=== PATIENT | female | born 1980 | race Caucasian/White ===

== ENCOUNTER 2016-04-26 11:48 | Emergency (ER) | payer OTHER ==
[2016-04-26 14:10] LABS: HEMOGLOBIN 13.3 gm/dl (12.3-15.3); RED BLOOD COUNT 4.65 M/UL (4.00-5.10); WHITE BLOOD COUNT 6.9 K/UL (4.5-11.0)
[2016-04-26 14:37] LABS: BUN/CREATININE RATIO 17 (0-10)
== END 2016-04-26 17:51 | disposition home or self-care (01) ==
LOC: ER1 11:48
PROVIDERS: Physician Assistant
DX: J10.1 Influenza due to other identified influenza virus with other respiratory manifestations (principal); E03.9 Hypothyroidism, unspecified; Z79.899 Other long term (current) drug therapy
CPT/HCPCS: 36415; 71020; 80053; 82550; 82553; 83605; 83874; 84443; 84484; 85025; 85379; 87040; 93005; 96361; 96374; 99284; J2405; J7030

== ENCOUNTER 2016-07-05 14:06 | Emergency (ER) | payer OTHER | END 2016-07-05 16:04 | disposition home or self-care (01) | LOC: ER1 14:06 | DX: S39.012A Strain of muscle, fascia and tendon of lower back, initial encounter (principal); E11.9 Type 2 diabetes mellitus without complications; E03.9 Hypothyroidism, unspecified; M79.7 Fibromyalgia; Z79.899 Other long term (current) drug therapy; X50.0XXA Overexertion from strenuous movement or load, initial encounter; Y92.69 Other specified industrial and construction area as the place of occurrence of the external cause; Y99.0 Civilian activity done for income or pay | CPT/HCPCS: 96372; 99283; J1100; J1885 ==

== ENCOUNTER 2016-08-02 12:52 | Emergency (ER) | payer OTHER | END 2016-08-02 14:00 | disposition home or self-care (01) | LOC: ER1 12:52 | DX: J01.90 Acute sinusitis, unspecified (principal); Z90.49 Acquired absence of other specified parts of digestive tract | CPT/HCPCS: 99283 ==

== ENCOUNTER 2020-03-19 12:30 | Emergency (ER) | payer OTHER ==
[~2020-03-19 12:30] MED LIST: IBUPROFEN600 MG PO; KEFLEX CAP 500500 MG PO; NAPROSYN500 MG PO; OMNICEF 300 MG300 MG PO; ONDANSETRON ODT4 MG SL; PYRIDIUM200 MG PO; ZOFRAN ODT4 MG PO; ZOFRAN4 MG PO
== END 2020-03-19 15:35 | disposition home or self-care (01) ==
LOC: ER1 12:30
DX: G43.909 Migraine, unspecified, not intractable, without status migrainosus (principal); Z79.899 Other long term (current) drug therapy; Z88.5 Allergy status to narcotic agent
CPT/HCPCS: 96374; 96375; 99283; J1200; J1885; J2765

== ENCOUNTER 2020-05-24 16:57 | Emergency (ER) | payer OTHER ==
[2020-05-24 19:55] LABS: HEMOGLOBIN 13.7 gm/dl (12.3-15.3); RED BLOOD COUNT 4.62 M/UL (4.00-5.10); WHITE BLOOD COUNT 7.9 K/UL (4.5-11.0)
[2020-05-24 20:18] LABS: BUN/CREATININE RATIO 13 (0-10)
[2020-05-24] MEDS ORDERED: K-DUR TAB 20 M20 MEQ PO (21:02)
[2020-05-24] MEDS ORDERED: IMODIUM CAP 2 MG2 MG PO (21:02)
[2020-05-24] MEDS ORDERED: BACTRIM DS TAB1 EACH PO (21:02)
[2020-05-24] MEDS ORDERED: ONDANSETRON ODT4 MG SL (21:02)
[2020-05-24] MEDS ORDERED: PHENERGAN 25 MG25 M1 PO (21:02)
== END 2020-05-24 21:19 | disposition home or self-care (01) ==
LOC: ER1 16:57
PROVIDERS: Physician Assistant
DX: G43.909 Migraine, unspecified, not intractable, without status migrainosus (principal); N39.0 Urinary tract infection, site not specified; E87.6 Hypokalemia; R19.7 Diarrhea, unspecified; I10 Essential (primary) hypertension; E11.9 Type 2 diabetes mellitus without complications; E03.9 Hypothyroidism, unspecified; Z88.5 Allergy status to narcotic agent; Z88.8 Allergy status to other drugs, medicaments and biological substances; Z90.49 Acquired absence of other specified parts of digestive tract; Z90.710 Acquired absence of both cervix and uterus
CPT/HCPCS: 80053; 81001; 83690; 85025; 87086; 96374; 96375; 99284; J1200; J1885; J2405; J2765

== ENCOUNTER → 2020-07-02 | Outpatient (CLI) | payer OTHER ==
[~2020-07-02] MED LIST changes: +BACTRIM DS TAB1 EACH PO; +IMODIUM CAP 2 MG2 MG PO; +K-DUR TAB 20 M20 MEQ PO; +PHENERGAN 25 MG25 M1 PO
== END ==
LOC: EXRD 09:35
DX: L40.50 Arthropathic psoriasis, unspecified (principal)
CPT/HCPCS: 72202

== ENCOUNTER 2021-08-22 12:14 | Emergency (ER) | payer OTHER ==
[2021-08-22 15:44] LABS: RED BLOOD COUNT 4.33 M/UL (4.00-5.10); WHITE BLOOD COUNT 6.1 K/UL (4.5-11.0)
[2021-08-22 16:40] LABS: BUN/CREATININE RATIO 21 (0-10)
[2021-08-22] MEDS ORDERED: OMNICEF 300 MG300 MG PO (16:54)
== END 2021-08-22 17:45 | disposition home or self-care (01) ==
LOC: ER1 12:14
PROVIDERS: Emergency Medicine
DX: J06.9 Acute upper respiratory infection, unspecified (principal); N39.0 Urinary tract infection, site not specified; Z20.822 Contact with and (suspected) exposure to COVID-19
CPT/HCPCS: 0240U; 71045; 80053; 81001; 83605; 85025; 87040; 87081; 87086; 87880; 93005; 96374; 99284; J0696

== ENCOUNTER → 2021-08-22 | Outpatient (CLI) | payer OTHER ==
[~2021-08-22] MED LIST changes: +AMOX TR-K CLV1 EAC4 PO; +BUSPIRONE HCL30 MG PO; +CYCLOBENZAPRINE10 MG PO; +DEXLANSOPRAZOLE60 MG PO; +DRIZALMA SPRINK40 MG PO; +ESTRACE1 MG PO; +FLONASE ALLER15.8 ML; +FOLIC ACID1 MG PO; +GLYCOPYRROLATE2 MG PO; +HUMIRA40 MG/0.4 SQ; +IBUPROFEN200 MG PO; +LEVEMIR FL100 UNIT/1 SQ; +LEVOCETIRIZINE D5 MG PO; +LEVOTHYROXINE175 MCG PO; +LISINOPRIL20 MG PO; +MECLIZINE HCL25 MG PO; +MYCOLOG II OINT15 GM TOP; +NOVOLOG FL100 UNIT/1 SQ; +ONDANSETRON ODT4 MG PO; +OXCARBAZEPINE600 MG PO; +TYLENOL EXTRA500 MG PO; +VALTREX1000 MG PO
== END ==
LOC: EXRD 09:23 → HEART 5 09:23
DX: R06.02 Shortness of breath (principal)
CPT/HCPCS: 71046; 94010; 94729; 95012